=== PATIENT | male | born 1935 | race Caucasian/White ===

== ENCOUNTER 2022-10-03 05:43 | Inpatient (IN) | payer MEDICARE, MEDICAID ==
[~2022-10-03] VITALS: Ht 167.6 cm; Wt 68.0 kg
[~2022-10-03 05:43] MED LIST: ATOR10TA69 PO; FERR-43 PO; FOLI-43 PO; FURO40TA5 PO; METF-414 PO; Potassium Chloride PO; TAM75 PO; TRAM50TA3 PO
[2022-10-03 10:10] LABS: BASOPHILS % 0.1 % (0.0-2.0); EOSINOPHILS % 1.2 % (0.0-5.0); HEMATOCRIT. 38.8 % (42.0-52.0); HEMOGLOBIN. 12.1 g/dL (14.0-18.0); LYMPHOCYTES % 23.5 % (20.0-50.0); MEAN CORPUSCULAR HEMOGLOBIN 26.5 pg (28.0-32.0); MEAN CORPUSCULAR VOLUME 84.6 fL (80.0-94.0); MEAN PLATELET VOLUME 7.8 fl (7.4-10.4); MONOCYTES % 6.9 % (2.0-8.0); NEUTROPHILS % 68.3 % (40.0-76.0); PLATELET 158 x1000/uL (130-400); RED BLOOD CELL COUNT 4.58 mill/uL (4.7-6.1)
[2022-10-03 10:15] LABS: CHLORIDE 106 mEq/L (98-107)
[2022-10-03 11:48] LABS: PROTHROMBIN TIME 10.5 sec (9.6-11.0)
[2022-10-03 14:05] VITALS: BP 179/76
[2022-10-03] MEDS ORDERED: LORAZEPAM 2MG/ML CPJ IV NR (14:15)
[2022-10-03] MEDS ORDERED: ASPIRIN 81MG TABLET PO NR (14:15)
[2022-10-03] MEDS ORDERED: MORPHINE SULFATE 2 MG/ML CPJ (NOT FOR IM USE) IV PRN (15:00)
[2022-10-03] MEDS ORDERED: ONDANSETRON HCL 4MG/2ML INJ IV PRN ×2 (15:00→16:45)
[2022-10-03 16:00] VITALS: BP 122/53
[2022-10-03] MEDS ORDERED: LINA5TAB PO ×2 (16:06→16:53)
[2022-10-03] MEDS ORDERED: [UNRECOGNIZED DRUG - OTHER] (16:06)
[2022-10-03] MEDS ORDERED: SERT-422 PO ×2 (16:06→16:50)
[2022-10-03] MEDS ORDERED: ASPI-1406 PO (16:06)
[2022-10-03] MEDS ORDERED: IBUP-2029 PO ×2 (16:06→17:01)
[2022-10-03] MEDS ORDERED: GABA-529 PO ×2 (16:06→16:51)
[2022-10-03] MEDS ORDERED: CHOL400D7 PO ×2 (16:06→16:55)
[2022-10-03] MEDS ORDERED: HYDR-4134 PO ×2 (16:06→16:52)
[2022-10-03] MEDS ORDERED: ATOR40TA70 PO (16:06)
[2022-10-03] MEDS ORDERED: CLOP75TA33 PO (16:06)
[2022-10-03] MEDS ORDERED: PANT40TA51 PO ×2 (16:06→16:56)
[2022-10-03] MEDS ORDERED: BACL20TA PO ×2 (16:06→16:58)
[2022-10-03] MEDS ORDERED: POTA8CAP20 PO ×2 (16:06→16:54)
[2022-10-03] MEDS ORDERED: ACETAMINOPHEN 325MG TABLET PO PRN (16:45)
[2022-10-03] MEDS ORDERED: LIP40 PO (16:48)
[2022-10-03] MEDS ORDERED: CLOP-31 PO (16:49)
[2022-10-03] MEDS ORDERED: ASPI-1497 PO (16:51)
[2022-10-03] MEDS ORDERED: METO25TA6 PO (16:59)
[2022-10-03] MEDS ORDERED: DEXTROSE 50% WATER 50ML SYRINGE IV PRN (17:00)
[2022-10-03] MEDS: HYDRALAZINE HCL 25MG TABLET PO SCH (17:00)
[2022-10-03] MEDS: SODIUM CHLORIDE 0.9% 1,000 ML IV SCH (17:11)
[2022-10-03] MEDS: BLOOD SUGAR DIAGNOSTIC STRIP TEST SCH ×2 (17:11→21:47)
[2022-10-03] MEDS ORDERED: NALOXONE HCL 0.4MG/ML VIAL IV PRN (17:15)
[2022-10-03] MEDS: INSULIN LISPRO 100 UNITS/ML SUBCUT SCH ×2 (17:20→21:00)
[2022-10-03 20:00] VITALS: BP 161/66
[2022-10-03] MEDS ORDERED: ATORVASTATIN CALCIUM 10MG TABLET PO SCH (21:00)
[2022-10-03] MEDS: ATORVASTATIN CALCIUM 40MG TABLET PO SCH (21:47)
[2022-10-04] VITALS (7 sets, daily range): BP systolic 130–164; BP diastolic 60–81
[2022-10-04 07:00] LABS: BASOPHILS % 0.2 % (0.0-2.0); EOSINOPHILS % 1.7 % (0.0-5.0); HEMATOCRIT. 36.2 % (42.0-52.0); HEMOGLOBIN. 11.7 g/dL (14.0-18.0); LYMPHOCYTES % 30.4 % (20.0-50.0); MEAN CORPUSCULAR HEMOGLOBIN 26.1 pg (28.0-32.0); MEAN CORPUSCULAR VOLUME 80.9 fL (80.0-94.0); MEAN PLATELET VOLUME 7.8 fl (7.4-10.4); MONOCYTES % 9.4 % (2.0-8.0); NEUTROPHILS % 58.3 % (40.0-76.0); PLATELET 159 x1000/uL (130-400); RED BLOOD CELL COUNT 4.47 mill/uL (4.7-6.1); RED CELL DISTRIBUTION WIDTH 15.7 % (11.6-14.6)
[2022-10-04] MEDS: INSULIN LISPRO 100 UNITS/ML SUBCUT SCH ×4 (07:40→20:39)
[2022-10-04] MEDS: BLOOD SUGAR DIAGNOSTIC STRIP TEST SCH ×4 (07:42→20:39)
[2022-10-04] MEDS ORDERED: FUROSEMIDE 40MG TABLET PO SCH (09:00)
[2022-10-04] MEDS: SODIUM CHLORIDE 0.9% 1,000 ML IV SCH (09:40)
[2022-10-04] MEDS: PANTOPRAZOLE 40MG DR TABLET PO SCH (09:46)
[2022-10-04] MEDS: HYDRALAZINE HCL 25MG TABLET PO SCH ×3 (09:46→16:42)
[2022-10-04] MEDS ORDERED: VANCOMYCIN 1.25GM PMX (XELLIA) 250 ML IV NR (14:00)
[2022-10-04] MEDS ORDERED: VANCOMYCIN 1250MG in DEXTROSE 5% WATER 250ML IV NR (14:00)
[2022-10-04] MEDS: CEFTRIAXONE 1,000 MG in DEXTROSE 5% WATER 50 ML IV SCH (15:06)
[2022-10-04 15:08] LABS: CLARITY URINE CLEAR (CLEAR); COLOR URINE YELLOW (YELLOW); KETONES URINE NEGATIVE (NEGATIVE); LEUKOCYTE ESTERASE URINE TRACE (NEGATIVE); NITRITE URINE NEGATIVE (NEGATIVE); OCCULT BLOOD URINE NEGATIVE (NEGATIVE); PH URINE 5.5 (4.5-8.0); PROTEIN URINE TRACE (NEGATIVE); SPECIFIC GRAVITY URINE 1.017 (1.005-1.030); UROBILINOGEN URINE 0.2 E.U./dL (0.2-1.0)
[2022-10-04] MEDS: ATORVASTATIN CALCIUM 40MG TABLET PO SCH (20:29)
[2022-10-05] VITALS: BP 129/57
[2022-10-05 04:00] VITALS: BP 106/73
[2022-10-05] MEDS: SODIUM CHLORIDE 0.9% 1,000 ML IV SCH (05:28)
[2022-10-05] MEDS: INSULIN LISPRO 100 UNITS/ML SUBCUT SCH ×2 (06:18→12:40)
[2022-10-05] MEDS: BLOOD SUGAR DIAGNOSTIC STRIP TEST SCH ×2 (06:18→12:56)
[2022-10-05 08:00] VITALS: BP 162/73
[2022-10-05] MEDS: HYDRALAZINE HCL 25MG TABLET PO SCH ×2 (09:13→13:09)
[2022-10-05] MEDS: PANTOPRAZOLE 40MG DR TABLET PO SCH (09:13)
[2022-10-05] MEDS: CEFTRIAXONE 1,000 MG in DEXTROSE 5% WATER 50 ML IV SCH (09:13)
[2022-10-05 12:00] VITALS: BP 129/75
[2022-10-05 16:00] VITALS: BP 143/68
[2022-10-05 16:05] VITALS: BP 143/68
[2022-10-05] MEDS ORDERED: VANCOMYCIN 750MG PREMIX 150 ML IV SCH (18:00)
[2022-10-06] MEDS ORDERED: FAMOTIDINE 20MG TABLET PO SCH (07:10)
== END 2022-10-05 17:45 | disposition home or self-care (01) | DRG 149 ==
LOC: ER 05:49 → 8WST 13:17 → EDBEDREQ 13:20 → ENRESERV 13:26
PROVIDERS: ADMIT Internal Medicine; ATTEND Internal Medicine
DX: H81.399 Other peripheral vertigo, unspecified ear (principal); G93.41 Metabolic encephalopathy; N17.9 Acute kidney failure, unspecified; F03.94 Unspecified dementia, unspecified severity, with anxiety; R27.0 Ataxia, unspecified; E87.5 Hyperkalemia; G89.4 Chronic pain syndrome; K21.9 Gastro-esophageal reflux disease without esophagitis; E78.00 Pure hypercholesterolemia, unspecified; I12.9 Hypertensive chronic kidney disease with stage 1 through stage 4 chronic kidney disease, or unspecified chronic kidney disease; E11.22 Type 2 diabetes mellitus with diabetic chronic kidney disease; N18.9 Chronic kidney disease, unspecified; E78.5 Hyperlipidemia, unspecified; R41.89 Other symptoms and signs involving cognitive functions and awareness; Z79.899 Other long term (current) drug therapy
CPT/HCPCS: 36415; 70544; 70547; 70553; 71045; 72170; 80048; 80053; 81003; 82550; 82553; 82962; 83605; 84145; 84443; 84484; 85025; 93005; 93306; 97162; 99285; J0696; J2060; J2270; J2405; J3370; J7030; J7060